=== PATIENT | male | born 1985 ===

== ENCOUNTER 2016-11-12 10:09 | Inpatient (IN) | payer OTHER ==
[2016-11-12 10:55] VITALS: BMI 20.9
[2016-11-12] MEDS ORDERED: Belladonna-Phenobarbital PO STA (11:08)
[2016-11-12] MEDS ORDERED: Aluminum Hydroxide/Magnesium Hydroxide Susp (30 mL) PO STA (11:08)
[2016-11-12] MEDS ORDERED: Lidocaine 2% Viscous 100 ml PO STA (11:08)
[2016-11-12] MEDS ORDERED: Belladonna-Phenobarbital ONE (11:30)
[2016-11-12] MEDS ORDERED: Aluminum Hydroxide/Magnesium Hydroxide Susp (30 mL) ONE (11:30)
[2016-11-12 11:47] LABS: BASO # 0.1 K/uL (0.0-0.2); BASO % 0.8 % (0.0-2.0); EOS # 0.1 K/uL (0.0-0.7); EOS % 0.6 % (0.0-4.0); HEMATOCRIT 43.8 % (35.0-51.0); LYMPH # 1.3 K/uL (1.0-4.3); LYMPH % 13.7 % (20.0-40.0); MEAN CELL VOLUME 88.1 fL (80.0-94.0); MEAN CORPUSCULAR HEMOGLOBIN 30.3 pg (27.0-31.0); MEAN CORPUSCULAR HGB CONC 34.4 g/dL (33.0-37.0); MEAN PLATELET VOLUME 8.2 fL (7.2-11.7); MONO # 0.3 K/uL (0.0-0.8); MONO % 3.7 % (0.0-10.0); RED CELL DISTRIBUTION WIDTH 13.1 % (11.5-14.5); WHITE BLOOD COUNT 9.4 K/uL (4.8-10.8)
--- NOTE | 2016-11-12 11:48 | C.PDOC ---
History Of Present Illness 31 year old patient, with a past medical history of hypercholesterolemia and gastritis, presents to the ED complaining of epigastric pain since 4 am today. Patient also complains of mild nausea. Patient denies any surgical history, vomiting, diarrhea, fever, chills, urinary symptoms, constipation, back pain, or any radiating pain. Time Seen by Provider: 11/12/16 10:35 Chief Complaint (Nursing): Abdominal Pain History Per: Patient History/Exam Limitations: no limitations Onset/Duration Of Symptoms: Hrs (4 am today) Current Symptoms Are (Timing): Still Present Context: Other Severity: Mild Pain Scale Rating Of: 3 Location Of Pain/Discomfort: Epigastric Radiation Of Pain To:: None Quality Of Discomfort: "Pain" Associated Symptoms: Nausea Exacerbating Factors: None Alleviating Factors: None Last Bowel Movement: Today Recent travel outside of the [place]: No Past Medical History Reviewed: Historical Data, Nursing Documentation, Vital Signs Vital Signs: Last Vital Signs Temp 98.7 F 11/12/16 17:59 Pulse 68 11/12/16 17:59 Resp 18 11/12/16 17:59 BP 131/74 11/12/16 17:59 Pulse Ox 99 11/12/16 17:59 - Medical History PMH: Hypercholesterolemia Family History: States: No Known Family Hx - Social History Hx Alcohol Use: Yes Hx Substance Use: No - Immunization History Hx Tetanus Toxoid Vaccination: No Hx Influenza Vaccination: Yes Hx Pneumococcal Vaccination: No Review Of Systems Except As Marked, All Systems Reviewed And Found Negative. Constitutional: Negative for: Fever, Chills Gastrointestinal: Positive for: Nausea, Abdominal Pain (epigastric). Negative for: Vomiting, Diarrhea, Constipation Genitourinary: Negative for: Dysuria, Hematuria Musculoskeletal: Negative for: Back Pain Physical Exam - Physical Exam Appears: Non-toxic, No Acute Distress Skin: Warm, Dry, No Rash Head: Atraumatic, Normacephalic Eye(s): bilateral: Normal Inspection Oral Mucosa: Moist Neck: Normal ROM, Supple Chest: Symmetrical Cardiovascular: Rhythm Regular, No Friction Rub, No Murmur Respiratory: Normal Breath Sounds, No Rales, No Rhonchi, No Wheezing Gastrointestinal/Abdominal: Soft, No Tenderness, No Distention, No Guarding, No Rebound Back: Normal Inspection, No CVA Tenderness Extremity: Normal ROM, No Swelling Neurological/Psych: Oriented x3, Normal Speech, Normal Cognition, Normal Motor, Normal Sensation Gait: Steady ED Course And Treatment - Laboratory Results Result Diagrams: 11/12/16 11:39 11/12/16 11:39 O2 Sat by Pulse Oximetry: 100 (room air) Pulse Ox Interpretation: Normal - Other Rad chest x-ray X-Ray: Read By Radiologist (Rosmery Rosales MD) Interpretation: HISTORY: abd pain. COMPARISON: None available. TECHNIQUE: Chest, one view. FINDINGS: LUNGS: No focal consolidation. Please note that chest x-ray has limited sensitivity for the detection of pulmonary masses. PLEURA: No significant pleural effusion identified. No definite pneumothorax . CARDIOVASCULAR: The cardiomediastinal silhouette appears within normal limits of size. OSSEOUS STRUCTURES: No acute osseous abnormality identified. VISUALIZED UPPER ABDOMEN: Unremarkable. OTHER FINDINGS: None. IMPRESSION: No focal consolidation, significant pleural effusion, or definite pneumothorax identified. Medical Decision Making Medical Decision Making: Plan: * Labs * Chest x-ray * * Maalox * Lidocaine 2% viscous * Morphine * Pepcid * Zofran On first re-exam, the patient reports improvement of symptoms. Abdomen is soft, non-tender. On second re-exam, the patient reports that the pain has returned and is 8 out of 10 and is now in the oscar-umbical and RLQ pain. Abdomen has (+) moderate RLQ tenderness. CT Abd and pelvis ordered. The case was discussed with surgical residents who evaluated the aptient at bedside and case was discussed with Dr. Pino who agrees to admit the patient to his service. Disposition - Disposition Disposition: HOSPITALIZED Disposition Time: 13:19 Condition: FAIR - Clinical Impression Clinical Impression: Abdominal pain, Gastritis - PA / NURSE TRANSITIONAL / Resident Statement MD/DO has reviewed & agrees with the documentation as recorded. - Scribe Statement The provider has reviewed the documentation as recorded by the Scribe Kimmy Batres All medical record entries made by the Scribe were at my direction and personally dictated by me. I have reviewed the chart and agree that the record accurately reflects my personal performance of the history, physical exam, medical decision making, and the department course for this patient. I have also personally directed, reviewed, and agree with the discharge instructions and disposition.
[2016-11-12 11:52] LABS: CHLORIDE 94 mmol/L (98-107); SODIUM 133 mmol/L (132-148)
[2016-11-12 11:53] LABS: POTASSIUM 3.7 mmol/L (3.6-5.2)
[2016-11-12 11:55] LABS: ALB/GLOB RATIO 1.5 (1.0-2.1); ALKALINE PHOSPHATASE 68 U/L (38-126); ALT/SGPT 35 U/L (21-72); AST/SGOT 34 U/L (17-59); BILIRUBIN,TOTAL 1.3 mg/dL (0.2-1.3); BLOOD UREA NITROGEN 12 mg/dL (9-20); CARBON DIOXIDE 30 mmol/L (22-30); GFR AFRICAN-AMERICAN > 60; GLUCOSE,RANDOM 115 mg/dL (75-110); TOTAL PROTEIN 7.1 g/dL (6.3-8.3)
[2016-11-12 11:56] LABS: CALCIUM 8.5 mg/dl (8.6-10.4)
--- NOTE | 2016-11-12 12:37 | RAD ---
HISTORY: abd pain COMPARISON: None available. TECHNIQUE: Chest, one view. FINDINGS: LUNGS: No focal consolidation. Please note that chest x-ray has limited sensitivity for the detection of pulmonary masses. PLEURA: No significant pleural effusion identified. No definite pneumothorax . CARDIOVASCULAR: The cardiomediastinal silhouette appears within normal limits of size. OSSEOUS STRUCTURES: No acute osseous abnormality identified. VISUALIZED UPPER ABDOMEN: Unremarkable. OTHER FINDINGS: None. IMPRESSION: No focal consolidation, significant pleural effusion, or definite pneumothorax identified.
[2016-11-12] MEDS ORDERED: Iohexol 240 (50 ml) PO ONE (13:45)
[2016-11-12] MEDS ORDERED: Morphine 4 MG/ML VIAL ONE (13:49)
[2016-11-12] MEDS ORDERED: Iohexol 240 (50 ml) ONE (13:49)
[2016-11-12] MEDS ORDERED: Iodixanol 320 MG/ML 100 ML BOTTLE IV ONE (15:48)
--- NOTE | 2016-11-12 16:16 | CT ---
PROCEDURE: CT Abdomen and Pelvis with oral and IV contrast. HISTORY: abd pain COMPARISON: None available TECHNIQUE: Contiguous axial images of the abdomen and pelvis. Oral and IV contrast was administered. Coronal and Sagittal reformats generated and reviewed. Contrast dose: 100 mL Omnipaque 350 Radiation dose: Total exam DLP = 275.48 mGy-cm. This CT exam was performed using one or more of the following dose reduction techniques: Automated exposure control, adjustment of the mA and/or kV according to patient size, and/or use of iterative reconstruction technique. FINDINGS: LOWER THORAX: The lung bases appear clear. Visualized portions of the heart appear within normal limits of size. There is no visible pleural effusion or pneumothorax. LIVER: Hypoattenuation of the liver compatible with hepatic steatosis. GALLBLADDER AND BILE DUCTS: Unremarkable unenhanced appearance. PANCREAS: Unremarkable unenhanced appearance. SPLEEN: Unremarkable unenhanced appearance. ADRENALS: Unremarkable unenhanced appearance. KIDNEYS AND URETERS: The kidneys enhance symmetrically. No hydronephrosis or obstructing renal calculus. BLADDER: Distended urinary bladder appears otherwise grossly unremarkable. REPRODUCTIVE: Prostate gland measures approximately 4.3 x 4.7 cm. APPENDIX: The presumed appendix measures approximately 10 mm in diameter with mild adjacent inflammatory stranding ; appearance consistent with acute appendicitis. Correlate clinically including physical exam. BOWEL: The stomach is nondistended. The bowel loops appear within normal limits of caliber without evidence of intestinal obstruction. PERITONEUM: No significant free fluid. No definite free air. LYMPH NODES: No bulky lymphadenopathy identified. VASCULATURE: No aortic aneurysm. BONES: 7 mm sclerotic focus, left ilium. 6 mm sclerotic focus, left sacrum. OTHER FINDINGS: None. IMPRESSION: The presumed appendix measures approximately 10 mm in diameter with mild adjacent inflammatory stranding ; appearance consistent with acute appendicitis. Correlate clinically including physical exam. The prostate gland appears borderline enlarged. Recommend correlation with PSA. Hepatic steatosis. Additional findings as above.
--- NOTE | 2016-11-12 17:20 | CP.PCM.HP ---
<Vito Pringle - Last Filed: 11/13/16 12:46> History of Present Illness - History of Present Illness History of Present Illness: Surgery: Alvarez CC: Abd pain HPI: 31M w. no pmh presents w. abd pain. Pain began this morning and was in the epigastric area. As day progressed pain became localized RLQ. Pt had nausea, no vomiting. Denies diarrhea. No F/C. No BURTON/blurred vision, no CP/palpitations, no SOB/cough, no hematuria/dysuria, no weakness/fatigue. PMH: none PSH: none Meds: Multi-vitamin NKDA Social: +tobacco, no ETOH/drugs Fhx: non-contributory Present on Admission - Present on Admission Any Indicators Present on Admission: No Review of Systems - Review of Systems All systems: reviewed and no additional remarkable complaints except (HPI) Past Patient History - Infectious Disease Hx of Infectious Diseases: None - Past Social History Smoking Status: Light Smoker < 10 Cigarettes Daily - CARDIAC Hx Hypercholesterolemia: Yes - PSYCHIATRIC Hx Substance Use: No - SURGICAL HISTORY Hx Surgeries: No Meds Home Medications: Home Medication List Medication Instructions Recorded Confirmed Type Ciprofloxacin [Cipro] 500 mg PO BID #14 tab 11/15/16 Rx Docusate Sodium [Colace] 100 mg PO TID #15 capsule 11/15/16 Rx metroNIDAZOLE [Flagyl] 500 mg PO Q8 #21 tab 11/15/16 Rx Allergies/Adverse Reactions: Allergies Allergy/AdvReac Type Severity Reaction Status Date / Time No Known Allergies Allergy Verified 11/12/16 10:55 Physical Exam - Constitutional Appears: Non-toxic, No Acute Distress - Head Exam Head Exam: ATRAUMATIC, NORMOCEPHALIC - Eye Exam Eye Exam: EOMI. absent: Scleral icterus - ENT Exam ENT Exam: Mucous Membranes Moist - Neck Exam Neck exam: Positive for: Full Rom - Respiratory Exam Respiratory Exam: NORMAL BREATHING PATTERN. absent: Accessory Muscle Use, Respiratory Distress - GI/Abdominal Exam GI & Abdominal Exam: Rebound (+Rovsion), Soft, Tenderness (RLQ). absent: Distended, Firm, Guarding, Hernia, Rigid Additional comments: +Psoas, + Obturator - Extremities Exam Extremities exam: Negative for: calf tenderness, pedal edema - Neurological Exam Neurological exam: Alert, Oriented x3 - Skin Skin Exam: Dry, Normal Color, Warm Results - Vital Signs Recent Vital Signs: Last Vital Signs Temp 97.9 F 11/12/16 13:31 Pulse 60 11/12/16 13:31 Resp 18 11/12/16 13:31 BP 106/67 11/12/16 13:31 Pulse Ox 100 11/12/16 14:13 - Labs Result Diagrams: 11/12/16 11:39 11/12/16 11:39 - Imaging and Cardiology CT scan - abdomen Status: Image reviewed by me, Report reviewed by me Assessment & Plan - Assessment and Plan (Free Text) Assessment: 31M w. appendicitis -NPO -OR tomorrow, consent in chart, risks and benefits d/w pt -IVF -pain meds -abx -zofran -SCDs -d/w attending Yary PGY2 <Brad Pino - Last Filed: 11/17/16 18:57> Results - Vital Signs Recent Vital Signs: Last Vital Signs Temp 98.3 F 11/15/16 08:30 Pulse 58 L 11/15/16 08:30 Resp 20 11/15/16 08:30 BP 110/66 11/15/16 08:30 Pulse Ox 99 11/15/16 08:30 - Labs Result Diagrams: 11/15/16 07:08 11/12/16 11:39 Attending/Attestation - Attestation I have personally seen and examined this patient.: Yes I have fully participated in the care of the patient.: Yes I have reviewed all pertinent clinical information: Yes Notes (Text): 11/17/16 18:56 Pt was seen and examined at bedside on 11/13/16 Agree with above note and assessment Pt with Acute Appendicitis OR for Lap Appendectomy possible Open Consent NPO, IVF Plan d/w pt in detail. Risk and benefit explained in detail.
[2016-11-12] MEDS ORDERED: Piperacillin/Tazobact 3.375 gm 100 ML IVPB ONE (17:50)
[2016-11-12] MEDS ORDERED: Sodium Chloride 0.9% 1,000 ML ONE (17:50)
[2016-11-12] MEDS: Piperacillin/Tazobact 3.375 GM in Sodium Chloride 100 ML IVPB SCH (18:00)
[2016-11-12] MEDS: Sodium Chloride 0.9% 1,000 ML IV SCH (18:00)
[2016-11-12 18:34] LABS: INR 1.1
[2016-11-12] MEDS: Morphine 4 MG/ML VIAL IVP PRN (20:35)
[2016-11-12] MEDS ORDERED: Pneumococcal 23-Valent Vaccine IM ONE (21:50)
[2016-11-13] MEDS: Piperacillin/Tazobact 3.375 GM in Sodium Chloride 100 ML IVPB SCH ×3 (01:30→19:17)
[2016-11-13] MEDS: Morphine 4 MG/ML VIAL IVP PRN ×2 (06:45→10:45)
[2016-11-13 08:48] LABS: HEMATOCRIT 42.8 % (35.0-51.0); MEAN CELL VOLUME 87.7 fL (80.0-94.0); MEAN CORPUSCULAR HGB CONC 34.2 g/dL (33.0-37.0); MEAN PLATELET VOLUME 8.2 fL (7.2-11.7)
[2016-11-13] MEDS: Sodium Chloride 0.9% 1,000 ML IV SCH (13:58)
[2016-11-13] MEDS ORDERED: Lactated Ringer's 1,000 ML IV ONE (14:40)
[2016-11-13] MEDS ORDERED: Midazolam 2 MG/2 ML VIAL ONE (14:41)
[2016-11-13] MEDS ORDERED: Succinylcholine Chloride 20 mg/ml Syr (5 ml) IV ONE (14:41)
[2016-11-13] MEDS ORDERED: Rocuronium 10 mg/ml (5 ml) ONE (14:41)
[2016-11-13] MEDS ORDERED: Propofol 10 mg/ml Inj (20 ML) ONE (14:42)
[2016-11-13] MEDS ORDERED: Lidocaine 1% Inj (20ml) ONE (14:50)
[2016-11-13] MEDS ORDERED: Bupivacaine/Epi 0.25%-1:200,000 10 ml PF inj IJ ONE (14:50)
[2016-11-13] MEDS ORDERED: Neostigmine Methylsulfate 3mg/3ml Syringe IV ONE (15:39)
[2016-11-13] MEDS ORDERED: HYDROmorphone 0.5 mg/0.5 ml ISec IVP PRN (16:04)
--- NOTE | 2016-11-13 16:04 | PCM.SURG1 ---
Surgeon's Initial Post Op Note - Surgeon's Notes Surgeon: Alvarez Clamshell Engineer: Yary PGY2 Type of Anesthesia: General Endo, Local Pre-Operative Diagnosis: Appendicitis Operative Findings: Acutley inflamed gangrenous appendix Post-Operative Diagnosis: same Operation Performed: laparoscopic appendectomy Specimen/Specimens Removed: appendix Estimated Blood Loss: EBL {In ML}: 15 Blood Products Given: N/A Drains Used: Mega Post-Op Condition: Good Date of Surgery/Procedure: 11/13/16 Time of Surgery/Procedure: 16:03
[2016-11-13] MEDS ORDERED: Morphine 4 MG/ML VIAL IVP PRN (16:07)
[2016-11-13] MEDS ORDERED: Sodium Chloride 0.9% 1,000 ML IV ONE (16:45)
[2016-11-13 18:27] VITALS: RESP 20
--- NOTE | 2016-11-13 19:32 | OP ---
PROCEDURE DATE: 11/13/2016 PREOPERATIVE DIAGNOSES: Acute appendicitis with leukocytosis. POSTOPERATIVE DIAGNOSES: Acute perforated phlegmonous appendicitis with pelvic , periappendicular and perihepatic abscess. PROCEDURES DONE: 1. Laparoscopic appendectomy. 2. Laparoscopic drainage of pelvic, periappendicular and perihepatic collection and abscess. 3. Laparoscopic extensive lysis of adhesions of phlegmonous mass. SURGEON: Brad Pino MD BPM ANALYST: Dr. Vito Pringle. ANESTHESIA: General endotracheal tube anesthesia. ESTIMATED BLOOD LOSS: Around 10 mL. PATHOLOGY: Appendix was sent for the pathology. DRAINS: A 15 Upper Sorbian Mega drain was placed. COMPLICATIONS: None. INTRAOPERATIVE FINDINGS: The patient had perforated phlegmonous appendicitis to the lateral abdominal wall as well as periappendicular and pelvic abscess as well as a perihepatic collection. INTRAOPERATIVE STEPS: This is a 31-year-old male who was diagnosed with acute appendicitis and leukocytosis and patient was consented for laparoscopic appendectomy, possible open, brought to the OR, placed supine on the operating table. After induction of the anesthesia, abdomen was prepped and draped in the usual sterile fashion and supraumbilical transverse incision was made. After incising skin and subcutaneous tissue and the fascia, a Felix port was placed, pneumo was created. Another 12 mm port was placed in left lower quadrant. Grasper and dissector was introduced and patient found to have pelvic and periappendicular abscess and patient also had phlegmon in the right flank as well as the pericolic gutter. Extensive lysis of adhesions was done. Now Appendix was identified. The body and tip of appendix was perforated into the abdominal wall and extensive lysis of adhesions was done to separate appendix from surrounding structures. The mesoappendix was resected with a Harmonic scalpel. The mesoappendix was resected with a DEVEN and appendix was taken in EndoCatch bag, taken out through the umbilical port site and sent off the table for the pathology. After proper drainage of pelvic and periappendicular and perihepatic abscess as well as collections, the 15 Upper Sorbian Mega drain was placed in the pelvis as well as extending up to the perforated appendicular area and the drain was secured to the skin. The pneumo was deflated. All the ports were taken out under vision and umbilical port site as well as the left lower quadrant port site was closed in 2 layers, the fascia with 0 Vicryl interrupted sutures, the skin with a 4-0 Monocryl. Dry sterile dressing was applied. The patient tolerated the procedure well. Count of instruments and gauze was correct. There was no apparent complication. Brad Pino MD cc: [id number] TT: 11/13/2016 19:32:10 linwood GALLEGOS
[2016-11-14] MEDS: Piperacillin/Tazobact 3.375 GM in Sodium Chloride 100 ML IVPB SCH ×3 (02:26→17:51)
[2016-11-14 08:25] LABS: HEMATOCRIT 41.3 % (35.0-51.0); MEAN CELL VOLUME 89.1 fL (80.0-94.0); MEAN CORPUSCULAR HEMOGLOBIN 29.4 pg (27.0-31.0); MEAN PLATELET VOLUME 8.2 fL (7.2-11.7); RED CELL DISTRIBUTION WIDTH 12.8 % (11.5-14.5); WHITE BLOOD COUNT 15.2 K/uL (4.8-10.8)
--- NOTE | 2016-11-14 10:15 | CP.PCM.PN ---
<José Marsh - Last Filed: 11/14/16 10:12> Subjective - Date & Time of Evaluation Date of Evaluation: 11/14/16 Time of Evaluation: 10:13 - Subjective Subjective: SURGERY PROGRESS NOTE FOR DR. VILLEGAS 31M seen and examined at bedside. Patient complains of mild abdominal pain. Denies nausea, vomiting. He is tolerating diet. MAURY drain 200cc 24hrs of serosanguinous fluid. Kowalski 1000cc in 24 hrs. Objective - Vital Signs/Intake and Output Vital Signs (last 24 hours): Temp Pulse Resp BP Pulse Ox 98.7 F 61 20 106/64 98 11/14/16 08:25 11/14/16 08:25 11/14/16 08:25 11/14/16 08:25 11/14/16 08:25 Intake and Output: 11/14/16 11/14/16 06:59 18:59 Intake Total 990 Output Total 1030 Balance -40 - Medications Medications: Current Medications Acetaminophen (Tylenol 325mg Tab) 975 mg PO Q8 MARYAM Stop: 11/14/16 14:01 Last Admin: 11/14/16 05:11 Dose: 975 mg Piperacillin Sod/Tazobactam (Sod 3.375 gm/ Sodium Chloride) 100 mls @ 200 mls/ hr IVPB Q8H [facility] Last Admin: 11/14/16 08:36 Dose: 200 mls/hr Ketorolac Tromethamine (Toradol) 15 mg IVP Q6 MARYAM Stop: 11/15/16 18:01 Last Admin: 11/14/16 05:12 Dose: 15 mg Morphine Sulfate (Morphine) 4 mg IVP Q4 PRN PRN Reason: Pain, severe (8-10) Last Admin: 11/13/16 22:37 Dose: 4 mg Ondansetron HCl (Zofran Inj) 4 mg IVP Q4 PRN PRN Reason: Nausea/Vomiting Oxycodone/Acetaminophen (Percocet 5/325 Mg Tab) 1 tab PO Q4H PRN PRN Reason: Pain, moderate (4-7) Stop: 11/16/16 16:07 Pneumococcal Polyvalent Vaccine (Pneumovax 23 Vaccine) 0.5 ml IM .ONCE ONE Stop: 11/15/16 10:01 - Labs Labs: 11/14/16 08:16 PT 12.2 SECONDS (9.7-12.2) 11/12/16 18:23 INR 1.1 11/12/16 18:23 APTT 36 SECONDS (21-34) H 11/12/16 18:23 - Constitutional Appears: Non-toxic, No Acute Distress - Head Exam Head Exam: ATRAUMATIC - ENT Exam ENT Exam: Mucous Membranes Moist - Respiratory Exam Respiratory Exam: Clear to Ausculation Bilateral, NORMAL BREATHING PATTERN - Cardiovascular Exam Cardiovascular Exam: REGULAR RHYTHM, +S1, +S2 - GI/Abdominal Exam GI & Abdominal Exam: Soft, Tenderness. absent: Distended, Firm, Guarding, Rigid , Rebound Additional comments: MAURY drain 20cc/24hrs serosang. Dressing clean Dry Intact. - Neurological Exam Neurological Exam: Alert, Awake - Skin Skin Exam: Dry, Intact, Normal Color, Warm Assessment and Plan - Assessment and Plan (Free Text) Assessment: 31M s/p laparoscopic appendectomy POD1 Plan: - continue diet - kowalski was DC. patient has voided. - monitor MAURY output - dressing changes - serial abdominal exams - pain control Discussed with Dr. Alvarez Marsh, PGY1 <Brad Villegas - Last Filed: 11/17/16 19:01> Objective - Vital Signs/Intake and Output Vital Signs (last 24 hours): Temp Pulse Resp BP Pulse Ox 98.3 F 58 L 20 110/66 99 11/15/16 08:30 11/15/16 08:30 11/15/16 08:30 11/15/16 08:30 11/15/16 08:30 - Labs Labs: 11/15/16 07:08 PT 12.2 SECONDS (9.7-12.2) 11/12/16 18:23 INR 1.1 11/12/16 18:23 APTT 36 SECONDS (21-34) H 11/12/16 18:23 Attending/Attestation - Attestation I have personally seen and examined this patient.: Yes I have fully participated in the care of the patient.: Yes I have reviewed all pertinent clinical information, including history, physical exam and plan: Yes Notes (Text): 11/17/16 19:01 Pt was seen and examined at bedside on 11/14/16 Agree with above note and assessment
[2016-11-14] MEDS: Oxycodone/Acetaminophen 5/325 mg Tab PO PRN ×2 (12:01→17:49)
[2016-11-14 23:37] VITALS: PULSE 58
[2016-11-15] MEDS: Piperacillin/Tazobact 3.375 GM in Sodium Chloride 100 ML IVPB SCH ×2 (00:32→09:33)
[2016-11-15 07:19] LABS: BASO # 0.1 K/uL (0.0-0.2); BASO % 0.7 % (0.0-2.0); EOS # 0.1 K/uL (0.0-0.7); EOS % 1.7 % (0.0-4.0); HEMATOCRIT 36.8 % (35.0-51.0); LYMPH # 2.2 K/uL (1.0-4.3); LYMPH % 26.1 % (20.0-40.0); MEAN CELL VOLUME 88.9 fL (80.0-94.0); MEAN CORPUSCULAR HEMOGLOBIN 30.7 pg (27.0-31.0); MEAN CORPUSCULAR HGB CONC 34.5 g/dL (33.0-37.0); MEAN PLATELET VOLUME 8.7 fL (7.2-11.7); MONO # 0.6 K/uL (0.0-0.8); MONO % 6.4 % (0.0-10.0); RED CELL DISTRIBUTION WIDTH 13.1 % (11.5-14.5); WHITE BLOOD COUNT 8.6 K/uL (4.8-10.8)
--- NOTE | 2016-11-15 07:24 | CP.PCM.PN ---
<ChristwhitneybelVito - Last Filed: 11/15/16 08:35> Subjective - Date & Time of Evaluation Date of Evaluation: 11/15/16 Time of Evaluation: 07:18 - Subjective Subjective: Surgery: Dr. Pino Pt seen and examined. Pain improved. Tolerating diet. No N/V. Passing flatus. No BM. No issues urinating. Objective - Vital Signs/Intake and Output Vital Signs (last 24 hours): Temp Pulse Resp BP Pulse Ox 97.8 F 58 L 20 103/58 L 97 11/14/16 23:25 11/14/16 23:25 11/14/16 23:25 11/14/16 23:25 11/14/16 23:25 Intake and Output: 11/15/16 11/15/16 06:59 18:59 Intake Total 290 Output Total 60 Balance 230 - Medications Medications: Current Medications Piperacillin Sod/Tazobactam (Sod 3.375 gm/ Sodium Chloride) 100 mls @ 200 mls/ hr IVPB Q8H MARYAM Last Admin: 11/15/16 00:32 Dose: 200 mls/hr Ketorolac Tromethamine (Toradol) 15 mg IVP Q6 MARYAM Stop: 11/15/16 18:01 Last Admin: 11/15/16 06:07 Dose: Not Given Morphine Sulfate (Morphine) 4 mg IVP Q4 PRN PRN Reason: Pain, severe (8-10) Last Admin: 11/13/16 22:37 Dose: 4 mg Ondansetron HCl (Zofran Inj) 4 mg IVP Q4 PRN PRN Reason: Nausea/Vomiting Oxycodone/Acetaminophen (Percocet 5/325 Mg Tab) 1 tab PO Q4H PRN PRN Reason: Pain, moderate (4-7) Stop: 11/16/16 16:07 Last Admin: 11/14/16 17:49 Dose: 1 tab Pneumococcal Polyvalent Vaccine (Pneumovax 23 Vaccine) 0.5 ml IM .ONCE ONE Stop: 11/15/16 10:01 - Labs Labs: 11/14/16 08:16 PT 12.2 SECONDS (9.7-12.2) 11/12/16 18:23 INR 1.1 11/12/16 18:23 APTT 36 SECONDS (21-34) H 11/12/16 18:23 - Constitutional Appears: Non-toxic, No Acute Distress - Head Exam Head Exam: ATRAUMATIC, NORMOCEPHALIC - ENT Exam ENT Exam: Mucous Membranes Moist - Neck Exam Neck Exam: Full ROM - Respiratory Exam Respiratory Exam: NORMAL BREATHING PATTERN. absent: Accessory Muscle Use, Respiratory Distress - GI/Abdominal Exam GI & Abdominal Exam: Soft, Tenderness (oscar-incisional ). absent: Distended, Firm, Guarding, Rigid Additional comments: suprapubic jd in place - Neurological Exam Neurological Exam: Alert, Awake, Oriented x3 Assessment and Plan - Assessment and Plan (Free Text) Assessment: 31M w. appendicitis, s/p lap appy, POD#2 -wbc trending down -jd 60cc/24 serosang, will d/c -pt doing well, clear for D/C -cipro/flagyl out pt for 7 day -follow up w/ Dr. Pino in 1-2 weeks -d/w attending Zemaitis PGY2 <Brad Pino B - Last Filed: 11/17/16 19:08> Objective - Vital Signs/Intake and Output Vital Signs (last 24 hours): Temp Pulse Resp BP Pulse Ox 98.3 F 58 L 20 110/66 99 11/15/16 08:30 11/15/16 08:30 11/15/16 08:30 11/15/16 08:30 11/15/16 08:30 - Labs Labs: 11/15/16 07:08 PT 12.2 SECONDS (9.7-12.2) 11/12/16 18:23 INR 1.1 11/12/16 18:23 APTT 36 SECONDS (21-34) H 11/12/16 18:23 Attending/Attestation - Attestation I have personally seen and examined this patient.: Yes I have fully participated in the care of the patient.: Yes I have reviewed all pertinent clinical information, including history, physical exam and plan: Yes Notes (Text): 11/17/16 19:08 Pt was seen and examined at bedside on 11/15/16 Agree with above note and assessment
[2016-11-15 08:58] VITALS: BP 110/66; TEMP 98.3; O2SAT 99
[2016-11-15] MEDS ORDERED: Pneumococcal 23-Valent Vaccine IM ONE (10:00)
--- NOTE | 2017-01-14 20:29 | CP.PCM.DIS ---
Provider - Provider Date of Admission: 11/12/16 16:43 Attending physician: Brad Pino MD Time Spent in preparation of Discharge (in minutes): 20 Diagnosis - Discharge Diagnosis (1) Appendicitis Status: Acute Hospital Course - Lab Results Lab Results: Most Recent Lab Values WBC 8.6 K/uL (4.8-10.8) 11/15/16 07:08 RBC 4.14 Mil/uL (4.40-5.90) L 11/15/16 07:08 Hgb 12.7 g/dL (12.0-18.0) 11/15/16 07:08 Hct 36.8 % (35.0-51.0) 11/15/16 07:08 MCV 88.9 fL (80.0-94.0) 11/15/16 07:08 MCH 30.7 pg (27.0-31.0) 11/15/16 07:08 MCHC 34.5 g/dL (33.0-37.0) 11/15/16 07:08 RDW 13.1 % (11.5-14.5) 11/15/16 07:08 Plt Count 186 K/uL (130-400) 11/15/16 07:08 MPV 8.7 fL (7.2-11.7) 11/15/16 07:08 Neut % (Auto) 65.1 % (50.0-75.0) 11/15/16 07:08 Lymph % (Auto) 26.1 % (20.0-40.0) 11/15/16 07:08 Knox % (Auto) 6.4 % (0.0-10.0) 11/15/16 07:08 Eos % (Auto) 1.7 % (0.0-4.0) 11/15/16 07:08 Baso % (Auto) 0.7 % (0.0-2.0) 11/15/16 07:08 Neut # 5.6 K/uL (1.8-7.0) 11/15/16 07:08 Lymph # 2.2 K/uL (1.0-4.3) 11/15/16 07:08 Knox # 0.6 K/uL (0.0-0.8) 11/15/16 07:08 Eos # 0.1 K/uL (0.0-0.7) 11/15/16 07:08 Baso # 0.1 K/uL (0.0-0.2) 11/15/16 07:08 PT 12.2 SECONDS (9.7-12.2) 11/12/16 18:23 INR 1.1 11/12/16 18:23 APTT 36 SECONDS (21-34) H 11/12/16 18:23 Sodium 133 mmol/L (132-148) 11/12/16 11:39 Potassium 3.7 mmol/L (3.6-5.2) 11/12/16 11:39 Chloride 94 mmol/L (98-107) L 11/12/16 11:39 Carbon Dioxide 30 mmol/L (22-30) 11/12/16 11:39 Anion Gap 13 (10-20) 11/12/16 11:39 BUN 12 mg/dL (9-20) 11/12/16 11:39 Creatinine 0.7 MG/DL (0.8-1.5) L 11/12/16 11:39 Est GFR ( Amer) > 60 11/12/16 11:39 Est GFR (Non-Af Amer) > 60 11/12/16 11:39 Random Glucose 115 mg/dL (75-110) H 11/12/16 11:39 Calcium 8.5 mg/dl (8.6-10.4) L 11/12/16 11:39 Total Bilirubin 1.3 mg/dL (0.2-1.3) 11/12/16 11:39 AST 34 U/L (17-59) 11/12/16 11:39 ALT 35 U/L (21-72) 11/12/16 11:39 Alkaline Phosphatase 68 U/L (38-126) 11/12/16 11:39 Total Protein 7.1 g/dL (6.3-8.3) 11/12/16 11:39 Albumin 4.2 g/dL (3.5-5.0) 11/12/16 11:39 Globulin 2.9 gm/dL (2.2-3.9) 11/12/16 11:39 Albumin/Globulin Ratio 1.5 (1.0-2.1) 11/12/16 11:39 Lipase 33 U/L (23-300) 11/12/16 11:39 Discharge Exam - Head Exam Head Exam: ATRAUMATIC, NORMOCEPHALIC Discharge Plan - Discharge Medications Prescriptions: Ciprofloxacin [Cipro] 500 mg PO BID #14 tab Docusate Sodium [Colace] 100 mg PO TID #15 capsule metroNIDAZOLE [Flagyl] 500 mg PO Q8 #21 tab - Follow Up Plan Condition: FAIR Disposition: HOME/ ROUTINE Instructions: Appendicitis (DC), Pain Management After Surgery (DC), Laparoscopic Appendectomy (DC), Care For Your Absorbable Stitches (GEN) Additional Instructions: Take medication as instructed. Activity as tolerated. Call Dr. Pino's office to schedule f/u appointment in 1-2 weeks. If questions or concerns arise , return to ED. Referrals: Brad Pino MD [Staff Provider] -
== END 2016-11-15 12:52 | disposition home or self-care (01) | DRG 151 ==
LOC: C.ER 10:09 → C.9OBSV 13:36 → OBSVTOIN 16:43 → C.9E 16:58 → C.6T 19:02
PROVIDERS: ADMIT Surgery Surgical Critical Care; ATTEND Surgery Surgical Critical Care
PROC: 0DNJ4ZZ Release Appendix, Percutaneous Endoscopic Approach (ICD-10-PCS; 2016-11-13)
PROC: 0W9J40Z Drainage of Pelvic Cavity with Drainage Device, Percutaneous Endoscopic Approach (ICD-10-PCS; 2016-11-13)
PROC: 0DTJ4ZZ Resection of Appendix, Percutaneous Endoscopic Approach (ICD-10-PCS; principal; 2016-11-13 15:45)
DX: K35.3 Acute appendicitis with localized peritonitis (principal); F17.210 Nicotine dependence, cigarettes, uncomplicated; E78.00 Pure hypercholesterolemia, unspecified; K29.70 Gastritis, unspecified, without bleeding

== ENCOUNTER 2018-05-03 12:50 | Emergency (ER) | payer OTHER ==
[2018-05-03 12:51] VITALS: BMI 20.9
[2018-05-03 13:06] VITALS: RESP 18
[2018-05-03 14:05] LABS: BASO # 0.1 K/uL (0.0-0.2); BASO % 1.4 % (0.0-2.0); EOS # 0.1 K/uL (0.0-0.7); EOS % 1.4 % (0.0-4.0); LYMPH # 1.4 K/uL (1.0-4.3); LYMPH % 17.9 % (20.0-40.0); MEAN CELL VOLUME 88.8 fL (80.0-94.0); MEAN CORPUSCULAR HEMOGLOBIN 30.3 pg (27.0-31.0); MEAN CORPUSCULAR HGB CONC 34.1 g/dL (33.0-37.0); MONO # 0.4 K/uL (0.0-0.8); MONO % 5.5 % (0.0-10.0); NEUT # 5.8 K/uL (1.8-7.0); NEUT % 73.8 % (50.0-75.0); NRBC % 0.1 % (0.0-2.0); RBC 5.22 Mil/uL (4.40-5.90); WHITE BLOOD COUNT 7.9 K/uL (4.8-10.8)
[2018-05-03 14:07] LABS: HEMOGLOBIN 15.8 g/dL (12.0-18.0)
[2018-05-03 14:18] LABS: ALB/GLOB RATIO 1.8 (1.0-2.1); ALBUMIN 4.9 g/dL (3.5-5.0); ALT/SGPT 41 U/L (21-72); AST/SGOT 27 U/L (17-59); BLOOD UREA NITROGEN 10 mg/dL (9-20); CALCIUM 8.9 mg/dl (8.6-10.4); GFR NON-AFRICAN AMERICAN > 60
[2018-05-03 14:35] LABS: SQUAMOUS EPITHIAL < 1 /hpf (0-5); URINE BILIRUBIN NEGATIVE (NEGATIVE); URINE BLOOD NEGATIVE (NEGATIVE); URINE CLARITY Clear (Clear); URINE COLOR Yellow (YELLOW); URINE GLUCOSE (UA) NORMAL (Normal); URINE LEUKOCYTE ESTERASE NEG Leu/uL (Negative); URINE PROTEIN NEGATIVE (NEGATIVE); URINE UROBILINOGEN NORMAL mg/dL (0.2-1.0)
[2018-05-03 15:00] LABS: BARBITURATES, UR NEGATIVE (NEGATIVE); BENZODIAZEPINES, UR NEGATIVE (NEGATIVE); OPIATES, UR NEGATIVE (NEGATIVE); PHENCYCLIDINE, UR NEGATIVE (NEGATIVE)
--- NOTE | 2018-05-03 15:30 | C.PDOC ---
History Of Present Illness 32 year old male is brought to ED for evaluation after he consumed 1 cup of coffee last night and 2 cups this morning which is significantly more than patient's typical caffeine intake. As per family pt has been shaking, feeling nervous, and has trouble moving his arms and legs since this morning. Denies history of depression or anxiety. Otherwise, denies chest pain, shortness of breath, abdominal pain, n/v/d, or fever. Time Seen by Provider: 05/03/18 13:08 Chief Complaint (Nursing): Anxiety History Per: Patient History/Exam Limitations: no limitations Onset/Duration Of Symptoms: Days Current Symptoms Are (Timing): Still Present Suicide/Self Injury Attempted (Context): None Associated Symptoms: denies: Suicidal Thoughts, Suicidal Plan Involuntary Hold By: None Additional History Per: Patient Past Medical History Reviewed: Historical Data, Nursing Documentation, Vital Signs Vital Signs: Last Vital Signs Temp 98 F 05/03/18 13:06 Pulse 92 H 05/03/18 13:06 Resp 18 05/03/18 13:06 BP 140/89 05/03/18 13:06 Pulse Ox 100 05/03/18 13:06 - Medical History PMH: Hypercholesterolemia - [facility] Procedures DRAINAGE OF PELVIC CAVITY WITH DRAIN DEV, PERC ENDO APPROACH (11/12/16) RELEASE APPENDIX, PERCUTANEOUS ENDOSCOPIC APPROACH (11/12/16) RESECTION OF APPENDIX, PERCUTANEOUS ENDOSCOPIC APPROACH (11/12/16) Family History: States: Unknown Family Hx - Social History Hx Alcohol Use: Yes Hx Substance Use: No - Immunization History Hx Tetanus Toxoid Vaccination: No Hx Influenza Vaccination: Yes Hx Pneumococcal Vaccination: No Review Of Systems Except As Marked, All Systems Reviewed And Found Negative. Constitutional: Negative for: Fever, Chills Cardiovascular: Negative for: Chest Pain, Palpitations Respiratory: Negative for: Shortness of Breath Gastrointestinal: Negative for: Nausea, Vomiting, Abdominal Pain Psych: Positive for: Anxiety Physical Exam - Physical Exam Appears: Non-toxic, No Acute Distress Skin: Normal Color, Warm, Dry Head: Normacephalic Eye(s): bilateral: Normal Inspection Oral Mucosa: Moist Neck: Normal ROM, Supple Cardiovascular: Rhythm Regular, No Murmur Respiratory: Normal Breath Sounds, No Rales, No Rhonchi, No Wheezing Gastrointestinal/Abdominal: Soft, No Tenderness Extremity: Normal ROM, No Deformity Extremity: Bilateral: Atraumatic, Normal ROM (Moving all extremities) Neurological/Psych: Oriented x3, Normal Speech, Normal Motor, Normal Sensation, Other (anxious) ED Course And Treatment - Laboratory Results Result Diagrams: 05/03/18 14:01 05/03/18 14:01 ECG: Interpreted By Me, Viewed By Me ECG Rhythm: Sinus Rhythm ECG Interpretation: No Acute Changes Interpretation Of ECG: Normal axis. No acute ST/T wave changes. Rate From EC (bpm) O2 Sat by Pulse Oximetry: 100 (RA) Pulse Ox Interpretation: Normal Progress Note: Blood work, UA, EKG was ordered and reviewed. Pt was given Xanax. On re-eval, pt is resting comfortably, no acute distress. Pt is being discharged home with instructions to follow up with PMD in 1-3 days. Disposition Counseled Patient/Family Regarding: Studies Performed, Diagnosis, Need For Followup - Disposition Referrals: [facility] [Outside] Disposition: HOME/ ROUTINE Disposition Time: 15:30 Condition: STABLE Additional Instructions: FOLLOW UP IN THE MEDICAL CLINIC IN 1-2 DAYS RETURN TO EMERGENCY ROOM IF YOUR SYMPTOMS BECOME WORSE AVOID CAFFEINE SEGUIR EN LA CLNICA MDICA EN 1-2 MCNEILL VUELVA A LA HOLGER DE EMERGENCIA SI DHAVAL SNTOMAS SE HACEN PEOR Evitar la cafena Instructions: Adverse Drug Reactions, Adult (DC) Forms: [employer] (Peruvian) Print Language: UKRAINIAN - Clinical Impression Clinical Impression: Caffeine adverse reaction - Scribe Statement The provider has reviewed the documentation as recorded by the Scribe KP All medical record entries made by the Scribe were at my direction and person ally dictated by me. I have reviewed the chart and agree that the record accurately reflects my personal performance of the history, physical exam, medical decision making, and the department course for this patient. I have also personally directed, reviewed, and agree with the discharge instructions and disposition.
[2018-05-03 15:52] VITALS: BP 113/69; PULSE 71; TEMP 98.7
[2018-05-03 16:12] VITALS: O2SAT 100
--- NOTE | 2018-05-04 12:16 | CARD ---
APPROVED REPORT Date of service: 05/03/2018 EKG Measurement Heart [id number] <Conclusion> Normal sinus rhythm Normal ECG
== END 2018-05-03 15:51 | disposition home or self-care (01) ==
LOC: C.ER 12:50
DX: F41.9 Anxiety disorder, unspecified (principal); T43.615A Adverse effect of caffeine, initial encounter